=== PATIENT | female | born 1955 | race Caucasian/White ===

== ENCOUNTER 2017-07-07 07:35 | Day surgery (SDC) | payer OTHER ==
[2017-07-07] MEDS ORDERED: MIDAZOLAM 1 MG/ML 2 ML INJ ×2 (09:11→09:12)
[2017-07-07] MEDS ORDERED: FENTAnyl 50 MCG/ML VIAL (09:12)
== END 2017-07-07 14:13 | disposition home or self-care (01) ==
LOC: GIL 07:35
DX: Z12.11 Encounter for screening for malignant neoplasm of colon (principal); K64.4 Residual hemorrhoidal skin tags; K57.90 Diverticulosis of intestine, part unspecified, without perforation or abscess without bleeding; I10 Essential (primary) hypertension
CPT/HCPCS: 45378

== ENCOUNTER 2017-08-08 16:31 | Emergency (ER) | payer OTHER ==
[2017-08-08] MEDS: NICARDipine HCL 30 MG CAPSULE PO (19:18)
== END 2017-08-08 20:15 | disposition home or self-care (01) ==
LOC: E/R 16:31
DX: I10 Essential (primary) hypertension (principal); R40.2252 Coma scale, best verbal response, oriented, at arrival to emergency department; R40.2142 Coma scale, eyes open, spontaneous, at arrival to emergency department; R40.2362 Coma scale, best motor response, obeys commands, at arrival to emergency department
CPT/HCPCS: 99283; Z7502

== ENCOUNTER 2017-09-13 08:36 | Day surgery (SDC) | payer OTHER ==
[2017-09-13] MEDS ORDERED: MIDAZOLAM 1 MG/ML 2 ML INJ ×2 (11:12)
[2017-09-13] MEDS ORDERED: FENTAnyl 50 MCG/ML VIAL (11:12)
== END 2017-09-13 15:38 | disposition home or self-care (01) ==
LOC: GIL 08:36
DX: Z12.11 Encounter for screening for malignant neoplasm of colon (principal); K64.8 Other hemorrhoids; K64.4 Residual hemorrhoidal skin tags; K57.90 Diverticulosis of intestine, part unspecified, without perforation or abscess without bleeding; I10 Essential (primary) hypertension
CPT/HCPCS: 45378